=== PATIENT | female | born 1985 | race African-American/Black ===

== ENCOUNTER → 2020-01-30 10:54 | Outpatient (BNVA) | payer OTHER, SELFPAY | PROVIDERS: Visit Provider Internal Medicine | DX: S29.011A Strain of muscle and tendon of front wall of thorax, initial encounter (principal); X58.XXXA Exposure to other specified factors, initial encounter | CPT/HCPCS: 99202 ==

== ENCOUNTER → 2020-02-04 08:11 | Outpatient (BNVA) | payer OTHER, SELFPAY | PROVIDERS: Visit Provider Internal Medicine | DX: S29.011A Strain of muscle and tendon of front wall of thorax, initial encounter (principal); X58.XXXA Exposure to other specified factors, initial encounter | CPT/HCPCS: 99213 ==

== ENCOUNTER → 2020-02-19 11:25 | Outpatient (BNVA) | payer OTHER, SELFPAY | PROVIDERS: Visit Provider Internal Medicine | DX: R07.89 Other chest pain (principal); M46.1 Sacroiliitis, not elsewhere classified | CPT/HCPCS: 99213 ==

== ENCOUNTER → 2020-03-05 11:08 | Outpatient (BNVA) | payer OTHER, SELFPAY | PROVIDERS: Visit Provider Internal Medicine | DX: M53.3 Sacrococcygeal disorders, not elsewhere classified (principal) | CPT/HCPCS: 99213 ==

== ENCOUNTER → 2020-03-16 11:03 | Outpatient (BNVA) | payer OTHER, SELFPAY | PROVIDERS: Visit Provider Internal Medicine | DX: S39.012D Strain of muscle, fascia and tendon of lower back, subsequent encounter (principal); X58.XXXD Exposure to other specified factors, subsequent encounter | CPT/HCPCS: 99213 ==

== ENCOUNTER → 2020-03-26 11:23 | Outpatient (BNVA) | payer OTHER, SELFPAY | PROVIDERS: Visit Provider Internal Medicine | DX: S39.012D Strain of muscle, fascia and tendon of lower back, subsequent encounter (principal); X58.XXXD Exposure to other specified factors, subsequent encounter | CPT/HCPCS: 99213 ==

== ENCOUNTER → 2020-04-02 09:59 | Outpatient (BNVA) | payer OTHER, SELFPAY | PROVIDERS: Visit Provider Internal Medicine | DX: S39.012D Strain of muscle, fascia and tendon of lower back, subsequent encounter (principal); X58.XXXD Exposure to other specified factors, subsequent encounter | CPT/HCPCS: 99213 ==

== ENCOUNTER 2020-04-07 14:46 | Outpatient (REF) | payer OTHER, SELFPAY ==
--- NOTE | 2020-04-07 15:15 | MR_ITS ---
EXAMINATION: MR LUMBAR SPINE WITHOUT CONTRAST CLINICAL INFORMATION: Lifting twisting injury. Lower back pain intensified. COMPARISON: There are no prior studies available for comparison. TECHNIQUE: MRI of the lumbar spine was obtained using routine sequences without contrast. FINDINGS: VERTEBRAL BODIES AND PARASPINAL STRUCTURES: There is anatomic alignment of the vertebral bodies. There is loss of intervertebral disc signal at L5-S1, although intervertebral disc height is maintained. Intervertebral disc height and signal maintained at other levels. Vertebral body heights are maintained and there are no fractures. Marrow signal is homogenous. The visualized retroperitoneal structures are unremarkable. There is a partially visualized cystic area in the mid upper pelvis which measures at least 4.5 cm and appears to be adjacent to the uterus. CONUS MEDULLARIS AND CAUDA EQUINA: Normal, terminating at the level of L1. The lower thoracic spinal cord appears normal. The cauda equina nerve roots and filum terminale appear normal. SPINAL LEVELS: L1-L2: The L1 spinous process appears partially unfused, a normal variant. The facet joints appear normal. Disc contour is normal. There is no central stenosis. The neural foramina are patent bilaterally. L2-L3: The facet joints appear normal bilaterally. Disc contour is normal. There is no central stenosis or foraminal narrowing. L3-L4: There is mild bilateral facet arthropathy. There is mild diffuse disc bulge. There is no central stenosis. The neural foramina are patent bilaterally. L4-L5: There is mild bilateral facet arthropathy. There is a small central and left-sided disc protrusion without definite exiting nerve root impingement. There is no central stenosis. L5-S1: There is mild bilateral facet arthropathy. There is a small posterior disc protrusion, without mass effect on the thecal sac. There is no central stenosis. The neural foramina are patent bilaterally. MR/MR lumbar spine wo con IMPRESSION: 1. There is mild facet arthropathy at L5-S1 with edematous small posterior disc protrusion. There is no central stenosis and the neural foramina are patent. 2. There is a small central and left-sided disc protrusion at L4-L5. There is no nerve root impingement or central stenosis. 3. There is an incompletely visualized cystic area adjacent to the uterus which measures at least 4.5 cm. This could be further evaluated with pelvic ultrasound.
== END 2020-04-07 14:47 | disposition home or self-care (01) ==
LOC: HO.MRI 14:46
PROVIDERS: Visit Provider Internal Medicine
DX: M54.5 Low back pain (principal); S39.92XA Unspecified injury of lower back, initial encounter; X58.XXXA Exposure to other specified factors, initial encounter; Y93.9 Activity, unspecified; Y92.9 Unspecified place or not applicable; Y99.9 Unspecified external cause status
CPT/HCPCS: 72148

== ENCOUNTER → 2020-04-13 09:48 | Outpatient (BNVA) | payer OTHER, SELFPAY | PROVIDERS: Visit Provider Internal Medicine | DX: S39.012D Strain of muscle, fascia and tendon of lower back, subsequent encounter (principal); X58.XXXD Exposure to other specified factors, subsequent encounter | CPT/HCPCS: 99213 ==

== ENCOUNTER → 2020-05-04 09:43 | Outpatient (BNVA) | payer OTHER, SELFPAY | PROVIDERS: Visit Provider Internal Medicine | DX: M51.27 Other intervertebral disc displacement, lumbosacral region (principal) | CPT/HCPCS: 99213 ==

== ENCOUNTER → 2020-05-06 14:09 | Outpatient (BNVA) | payer OTHER, SELFPAY | PROVIDERS: Visit Provider Internal Medicine | DX: M51.27 Other intervertebral disc displacement, lumbosacral region (principal) | CPT/HCPCS: 99213 ==

== ENCOUNTER → 2020-05-13 10:49 | Outpatient (BNVA) | payer OTHER, SELFPAY | PROVIDERS: Visit Provider Internal Medicine | DX: M51.27 Other intervertebral disc displacement, lumbosacral region (principal); K30 Functional dyspepsia | CPT/HCPCS: 99213 ==

== ENCOUNTER → 2020-05-21 08:02 | Outpatient (BNVA) | payer OTHER, SELFPAY | PROVIDERS: Visit Provider Internal Medicine | DX: M51.27 Other intervertebral disc displacement, lumbosacral region (principal) | CPT/HCPCS: 99213 ==

== ENCOUNTER → 2020-06-04 07:58 | Outpatient (BNVA) | payer OTHER, SELFPAY | PROVIDERS: Visit Provider Internal Medicine | DX: M51.26 Other intervertebral disc displacement, lumbar region (principal) | CPT/HCPCS: 99213 ==